=== PATIENT | male | born 1985 | race Caucasian/White ===

== ENCOUNTER 2018-09-15 02:44 | Emergency (ER) | payer OTHER ==
[~2018-09-15] VITALS: Ht 182.9 cm; Wt 108.9 kg
[2018-09-15] MEDS ORDERED: FAMOTIDINE 20 MG/2 ML VIAL IV STA (03:24)
[2018-09-15] MEDS ORDERED: SODIUM CHLORIDE 0.9% 1000ML 1,000 ML IV SCH (03:30)
[2018-09-15] MEDS ORDERED: POTASSIUM CHLORIDE 20 MEQ TAB CR PO STA (03:48)
--- NOTE | 2018-09-15 03:55 | Diagnostic Imaging Report ---
Exam: PA and lateral view of the chest Indication: Chest pain Comparison: None next Findings: No consolidations, pleural effusions or pneumothorax. Normal appearance of the cardiomediastinal silhouette and bones. Impression: Normal chest x-ray. Signed by: Dr. Brook Hoang M.D. on 09/15/2018 3:52 AM
[2018-09-15] MEDS ORDERED: POTASSIUM CHLORIDE 10MEQ/100ML 100 ML IV ONE (04:00)
== END 2018-09-15 05:43 | disposition home or self-care (01) ==
LOC: FSED 02:44
DX: R07.9 Chest pain, unspecified (principal); E87.6 Hypokalemia; K52.9 Noninfective gastroenteritis and colitis, unspecified; K21.9 Gastro-esophageal reflux disease without esophagitis
CPT/HCPCS: 71046; 80048; 80076; 81003; 82553; 84484; 85025; 93005; 99283